=== PATIENT | male | born 1985 | race African-American/Black ===

== ENCOUNTER 2017-07-18 03:43 | Emergency (ER) | payer BC ==
[~2017-07-18] VITALS: Ht 188 cm; Wt 97.5 kg
[2017-07-18 05:50] VITALS: BP 138/63
== END 2017-07-18 06:45 | disposition home or self-care (01) ==
LOC: ER 03:43
DX: S92.102A Unspecified fracture of left talus, initial encounter for closed fracture (principal); W19.XXXA Unspecified fall, initial encounter; Y93.89 Activity, other specified; Y99.8 Other external cause status; Y92.89 Other specified places as the place of occurrence of the external cause
CPT/HCPCS: 29505; 29515; 73610

== ENCOUNTER 2018-07-18 11:30 | Emergency (ER) | payer BC ==
[~2018-07-18] VITALS: Ht 188 cm; Wt 104.8 kg
[2018-07-18 11:46] VITALS: BP 130/70
[2018-07-18] MEDS ORDERED: METHOCARBAMOL 500 MG TAB PO ONE (12:15)
== END 2018-07-18 12:21 | disposition home or self-care (01) ==
LOC: ER 11:30
DX: S16.1XXA Strain of muscle, fascia and tendon at neck level, initial encounter (principal); X58.XXXA Exposure to other specified factors, initial encounter; Y93.89 Activity, other specified; Y99.8 Other external cause status; Y92.89 Other specified places as the place of occurrence of the external cause

== ENCOUNTER 2018-09-17 14:42 | Emergency (ER) | payer BC ==
[~2018-09-17] VITALS: Ht 188 cm; Wt 104.3 kg
[2018-09-17 15:07] VITALS: BP 117/61
[2018-09-17] MEDS ORDERED: KETOROLAC TROMETH 60MG/2ML VIAL IM ONE (17:15)
== END 2018-09-17 17:58 | disposition home or self-care (01) ==
LOC: ER 14:42
DX: S29.012A Strain of muscle and tendon of back wall of thorax, initial encounter (principal); X58.XXXA Exposure to other specified factors, initial encounter; Y93.72 Activity, wrestling; Y99.8 Other external cause status; Y92.89 Other specified places as the place of occurrence of the external cause
CPT/HCPCS: 96372; 99283; J1885